=== PATIENT | male | born 1935 | race Caucasian/White ===

== ENCOUNTER 2018-04-25 08:32 | Emergency (ER) | payer MEDICARE, SELFPAY ==
[2018-04-25 08:32] VITALS: BP 123/65; PULSE 79; RESP 18; TEMP 36.7; O2SAT 100; BMI 31.3
--- NOTE | 2018-04-25 08:33 | ED.GENADULT ---
HPI - General Adult General Chief complaint: Altered Mental Status Stated complaint: Mental Health Eval Time Seen by Provider: 04/25/18 08:33 Source: patient and police Mode of arrival: other (Police) Limitations: altered mental status History of Present Illness HPI narrative: Patient arrived this morning by police after they were called because the patient was found along the street. Police state that the patient stated that he was trying to find his ?Turkmen ?who he has been talking to on the ?[employer] ?. Patient has no complaints upon arrival. States he does not know why he is here. Is calm. I was able to contact the patient's daughter whose name is Maribell Quinn. Her phone number is [phone]. It was reported by her that the patient was a resident of the [id number] until ?just recently ?I do not know how long he has been outside of this facility. He has been staying with his daughter Maribell. His daughter states that over the past several days his ?dementia ?has been ?getting worse ?. She states that he was accusing her of ?kidnapping ?him. Apparently he has also been leaving the house in the middle the night. Maribell told me this morning that the patient wanted her to call the police to ?report the kidnapping ?who was apparently them who called the police this morning. Related Data Previous Rx's Medication Instructions Recorded lorazepam [Ativan] 0.5 mg PO Q4HR PRN #20 tab 04/25/18 quetiapine [Seroquel] 25 mg PO BID #60 tab 04/25/18 Allergies Allergy/AdvReac Type Severity Reaction Status Date / Time phenobarbital Allergy Verified 04/25/18 13:34 Review of Systems Review of Systems Patient has no complaints upon arrival Constitutional Denies fever(s) and Denies headache(s) Eyes Denies blurry vision and Denies diplopia ENT Ears, Nose, Mouth, and Throat: Denies headache(s) Cardiovascular Denies chest pain and Denies dyspnea Respiratory Denies dyspnea Gastrointestinal Gastrointestinal: Denies abdominal pain Genitourinary Denies dysuria Musculoskeletal Denies myalgias and Denies arthralgias Integumentary/Breasts Denies rash Neurologic Denies headache(s) PFSH Medical History Dementia (Acute) Social History marital status: unmarried,single lives independently: No caregiver/support person: Yes (Daughter) housing: house Exam Initial Vital Signs Initial Vital Signs: Vital Signs Temperature 98.1 F 04/25/18 08:32 Pulse Rate 79 04/25/18 08:32 Respiratory Rate 18 04/25/18 08:32 Blood Pressure 123/65 04/25/18 08:32 Pulse Oximetry 100 04/25/18 08:32 Const General: cooperative, comfortable, well developed, well groomed and No acute distress Orientation: alert, awake, oriented to person, not oriented to place, not oriented to time and confused HENMT Head: normal to inspection and normocephalic Resp Effort & Inspection: normal respiratory effort Auscultation: clear to auscultation bilaterally Cardio Rate: regular rate Rhythm: regular rhythm GI Inspection: non-distended Palpation: soft Skin Lesions: no lesions Rashes: no rashes Neuro General: alert, awake, gait normal and moves all extremities Speech: speech normal Gait: normal gait Sensory Exam: no sensory deficits noted Extrem General: normal to inspection and capillary refill normal Psych Appearance: grossly normal and well kempt Course Orders Ordered: ED Orders 04/25/18 08:34 Consult to Parts Lister Stat 04/25/18 08:50 CT head/brain wo con Stat 04/25/18 09:17 Acetaminophen Stat Ammonia (NH3) Stat Basic Metabolic Panel Stat Complete Blood Count AUTO DIFF Stat Ethanol (ETOH) Stat 04/25/18 09:43 Urine Drug Screen, Rapid Stat Vital Signs - 8 hr 04/25/18 08:32 04/25/18 12:29 Temperature 98.1 F 98.0 F Pulse Rate 79 63 Respiratory Rate 18 18 Blood Pressure 123/65 Blood Pressure [Left Arm] 127/63 Pulse Oximetry 100 96 Medical Decision Making Lab Data Lab results reviewed: Yes I reviewed the patient's lab results. Result diagrams: 04/25/18 09:17 04/25/18 09:17 Lab Results 04/25/18 04/25/18 04/25/18 Range/Units 09:17 09:17 09:17 WBC 9.7 (4.5-11.0) X10^3/uL RBC 4.74 (4.5-5.9) X10^6/uL Hgb 15.7 (13.5-17.5) g/dL Hct 44.2 (41-53) % MCV 93.4 (80-100) fL MCH 33.2 (26-34) PG MCHC 35.6 (30-36) % RDW 12.9 (11.6-14.8) % Plt Count 220 (150-400) X10^3/uL Neut % (Auto) 85.1 H (50-75) % Lymph % (Auto) 8.3 L (25-40) % Piatt % (Auto) 5.5 (3-14) % Eos % (Auto) 0.7 L (2-4) % Baso % (Auto) 0.4 (0-2) % Neut # (Auto) 8200 H (1076-8833) /uL Sodium 140 (137-145) mmol/L Potassium 4.5 (3.4-5.1) mmol/L Chloride 104 (98-107) mmol/L Carbon Dioxide 23 (22-32) mmol/L BUN 14 (9-20) mg/dL Creatinine 0.90 (0.66-1.25) mg/dL Estimated GFR > 60.0 (>60) mL/min BUN/Creatinine Ratio 15.6 (6-22) Glucose 190 H (80-110) mg/dL Calcium 9.6 (8.4-10.2) mg/dL Ammonia 9.0 (9-30) umol/L Urine Opiates Screen (Negative) Ur Oxycodone Screen (Negative) Urine Methadone Screen (Negative) Acetaminophen < 10 L (10-30) ug/mL Ur Barbiturates Screen (Negative) U Tricyclic Antidepress (Negative) Ur Phencyclidine Scrn (Negative) Ur Amphetamines Screen (Negative) U Methamphetamines Scrn (Negative) Ur MDMA Scrn (Ecstasy) (Negative) U Benzodiazepines Scrn (Negative) Urine Cocaine Screen (Negative) U Marijuana (THC) Screen (Negative) Ethyl Alcohol < 10 mg/dL 04/25/18 Range/Units 09:43 WBC (4.5-11.0) X10^3/uL RBC (4.5-5.9) X10^6/uL Hgb (13.5-17.5) g/dL Hct (41-53) % MCV (80-100) fL MCH (26-34) PG MCHC (30-36) % RDW (11.6-14.8) % Plt Count (150-400) X10^3/uL Neut % (Auto) (50-75) % Lymph % (Auto) (25-40) % Piatt % (Auto) (3-14) % Eos % (Auto) (2-4) % Baso % (Auto) (0-2) % Neut # (Auto) (4609-7707) /uL Sodium (137-145) mmol/L Potassium (3.4-5.1) mmol/L Chloride (98-107) mmol/L Carbon Dioxide (22-32) mmol/L BUN (9-20) mg/dL Creatinine (0.66-1.25) mg/dL Estimated GFR (>60) mL/min BUN/Creatinine Ratio (6-22) Glucose (80-110) mg/dL Calcium (8.4-10.2) mg/dL Ammonia (9-30) umol/L Urine Opiates Screen Negative (Negative) Ur Oxycodone Screen Negative (Negative) Urine Methadone Screen Negative (Negative) Acetaminophen (10-30) ug/mL Ur Barbiturates Screen Negative (Negative) U Tricyclic Antidepress Negative (Negative) Ur Phencyclidine Scrn Negative (Negative) Ur Amphetamines Screen Negative (Negative) U Methamphetamines Scrn Negative (Negative) Ur MDMA Scrn (Ecstasy) Negative (Negative) U Benzodiazepines Scrn Negative (Negative) Urine Cocaine Screen Negative (Negative) U Marijuana (THC) Screen Negative (Negative) Ethyl Alcohol mg/dL Imaging Data CT scan - head: Radiologist's impression: PROCEDURE: CT HEAD/BRAIN WO CON INDICATIONS: Altered mental status TECHNIQUE: Noncontrast 4.5 mm thick angled axial sections acquired from the foramen magnum to the vertex, with coronal and sagittal reformats. For radiation dose reduction, the following was used: automated exposure control, adjustment of mA and/or kV according to patient size. COMPARISON: None. FINDINGS: Image quality: Excellent. CSF spaces: Basal cisterns are patent. No extra-axial fluid collections. The ventricles are symmetric in size and shape. Brain: No intracranial bleeds or masses. There is cerebral volume loss for age, with resultant ventricular and sulcal prominence. There are periventricular and deep white matter chronic small vessel ischemic changes. There is intracranial internal carotid artery atherosclerosis. Skull and face: Calvarium and visualized facial bones appear intact, without suspicious lesions. Sinuses: Visualized sinuses and mastoids are clear. IMPRESSION: Normal for age, source of current altered mental status symptoms is not seen. Dictated by: Behzad Wilcox M.D. on 04/25/2018 at 10:17 Approved by: Behzad Wilcox M.D. on 04/25/2018 at 10:19 [facility] Narrative Medical decision making narrative: Patient is medically cleared. He has no signs of trauma. Was able to talk with his daughter who did come to the emergency department. Social Work was involved. 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 Patient does not require further workup here in the emergency department. He was evaluated by the [facility] staff here in the emergency department. He was discharged to his daughter to take him to this new facility. Discharge Plan Departure Patient Disposition: Home Clinical Impression: Dementia Activity Restrictions/Additional Instructions: I did prescribe a short course of medications but further prescriptions of these medicines do need to be filled by either the medical voucher clerk at [facility] or by his primary doctor. Patient may be transferred to [facility] with medications Prescriptions: New quetiapine [Seroquel] 25 mg tablet 25 mg PO BID Qty: 60 RF: 0 lorazepam [Ativan] 0.5 mg tablet 0.5 mg PO Q4HR PRN (Reason: sedation) Qty: 20 RF: 0
--- NOTE | 2018-04-25 08:46 | PC.NURSE ---
on arrival pt awake, cooperative with care, denies any pain at this time, states, just with cold feet skin warm dry pink, moving all extremities.
--- NOTE | 2018-04-25 08:50 | DI.CT.S_ITS ---
PROCEDURE: CT HEAD/BRAIN WO CON INDICATIONS: Altered mental status TECHNIQUE: Noncontrast 4.5 mm thick angled axial sections acquired from the foramen magnum to the vertex, with coronal and sagittal reformats. For radiation dose reduction, the following was used: automated exposure control, adjustment of mA and/or kV according to patient size. COMPARISON: None. FINDINGS: Image quality: Excellent. CSF spaces: Basal cisterns are patent. No extra-axial fluid collections. The ventricles are symmetric in size and shape. Brain: No intracranial bleeds or masses. There is cerebral volume loss for age, with resultant ventricular and sulcal prominence. There are periventricular and deep white matter chronic small vessel ischemic changes. There is intracranial internal carotid artery atherosclerosis. Skull and face: Calvarium and visualized facial bones appear intact, without suspicious lesions. Sinuses: Visualized sinuses and mastoids are clear. IMPRESSION: Normal for age, source of current altered mental status symptoms is not seen. Dictated by: Behzad Wilcox M.D. on 04/25/2018 at 10:17 Approved by: Behzad Wilcox M.D. on 04/25/2018 at 10:19
[2018-04-25 09:25] LABS: Add Manual Diff / Slide Review NO; Basophils Percent Auto 0.4 % (0-2); Eosinophils Percent Auto 0.7 % (2-4); Hematocrit 44.2 % (41-53); Hemoglobin 15.7 g/dL (13.5-17.5); Lymphocytes Percent Auto 8.3 % (25-40); Mean Corpuscular HGB Conc 35.6 % (30-36); Mean Corpuscular Hemoglobin 33.2 PG (26-34); Mean Corpuscular Volume 93.4 fL (80-100); Monocytes Percent Auto 5.5 % (3-14); Neutrophils Absolute Auto 8200 /uL (1500-7000); Neutrophils Percent Auto 85.1 % (50-75); Platelet Count 220 X10^3/uL (150-400); Red Blood Cell Count 4.74 X10^6/uL (4.5-5.9); Red Cell Distribution Width 12.9 % (11.6-14.8); White Blood Cell Count 9.7 X10^3/uL (4.5-11.0)
--- NOTE | 2018-04-25 09:32 | PC.NURSE ---
Shafter from social work will be down after morning rounds, RN and MD aware.
[2018-04-25 09:37] LABS: Acetaminophen < 10 ug/mL (10-30); BUN Creatinine Ratio 15.6 (6-22); Blood Urea Nitrogen 14 mg/dL (9-20); Calcium 9.6 mg/dL (8.4-10.2); Carbon Dioxide 23 mmol/L (22-32); Chloride 104 mmol/L (98-107); Estimated Glomerular Filt Rate > 60.0 mL/min (>60); Ethanol (ETOH) < 10 mg/dL; Glucose 190 mg/dL (80-110); HEMOLYSIS < 15 (0-50); Potassium 4.5 mmol/L (3.4-5.1); Sodium 140 mmol/L (137-145)
[2018-04-25 09:50] LABS: Urine Amphetamines Negative (Negative); Urine Barbiturates Negative (Negative); Urine Benzodiazepines Negative (Negative); Urine Cocaine Negative (Negative); Urine MDMA Negative (Negative); Urine Methadone Negative (Negative); Urine Methamphetamines Negative (Negative); Urine Morphine/Opi cutoff 2000 Negative (Negative); Urine Oxycodone Negative (Negative); Urine Phencyclidine Negative (Negative); Urine Tetrahydrocannabinol Negative (Negative); Urine Tricyclic Antidepressant Negative (Negative)
--- NOTE | 2018-04-25 10:47 | CM.SWNOTE ---
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 BF Original Note: Addendum entered by MIAH Gilbert 04/25/18 11:05: ADD: Per Dtr Maribell, just spoke to Oxana from [facility] and she will be bedside in the ER to assess the pt for placement today around 1300. Dtr running home to grab some of the patient's belongings and currently they are agreeable with placement for the pt as long as assessment is approved by [facility]. Family plans to still follow up with [facility] on Friday towards possibly getting on the waitlist for placement in the future. KAILEE updated RN and will wait for assessment at 1300 to confirm pt can be placed intermediate at [facility] in [facility]. KAILEE printed off clinicals for Oxana to review during assessment. MIAH Gilbert Original Note: Dementia Care/Placement needs Per ER MD, pt admitted to ER and transported via [employer] due to confusion and wandering the street in the dark after family called police dept. Per ER MD, so far no medical needs identified to admit pt to the hospital and family requesting support with placement. KAILEE met bedside with pt (who was confused and unable to participate in goal directed discussion) and pt's Dtr Maribell ([phone]) and son ajbari and explained role. Dtr and JAIME confirmed that they had moved the pt from [place] to [facility] less than a year ago and recently pt's dementia has gotten worse and [facility] requested pt move from their facility due to being too high level of care for their fdc community. Family at that time decided to try to move the pt into their home here in [place] but recently pt has become increasingly confused and wandering away from home and not sleeping at night and they realize they cannot safely maintain the pt in their home. Family states that they have left messages with [facility] to inquire about intermediate care placement and possible timeline for openings. SW discussed possible options of ankle bracelet from [employer], private pay caregivers in the home for additional support, Respite Stay at Memory Care Facility, and provided list of other memory care facilities in [facility]. Family reviewed the Senior Resource Guidebook KAILEE provided and stated they are agreeable to either Respite Stay or LTC at Memory Care facility, whichever could happen today and state that the pt has financial means to pay and do not feel he would qualify for Medicaid. KAILEE called Hetal at [facility] and she confirms that she remembers meeting the pt and family about 6 months ago and family at that time decided on taking pt home with them. 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 Hetal states that pending how that assessment goes, they could then assess the pt if the other gentleman does not meet the needs for their facility but unknown at this time. KAILEE called Oxana from [facility] and she confirms that their 3 Respite Beds are full at this time but they have one LTC male bed available at [facility] and she could assess the pt today. KAILEE updated the family and provided [facility]'s number and [employer] brochure to review and family calling [facility] currently to determine if they are agreeable to assessment and facility tour for placement today. KAILEE updated . Plan: KAILEE following for possible assessment from [facility] today for possible LTC placement at their Memory Care facility today. MIAH Gilbert
--- NOTE | 2018-04-25 11:11 | PC.NURSE ---
per ashu, staff from [facility],arrival for assessment approximately 1300. family left to get pts personal belongings.
[2018-04-25 12:29] VITALS: BP 127/63; PULSE 63; RESP 18; TEMP 36.7; O2SAT 96
[2018-04-25] MEDS: LORazepam 0.5 MG TABLET PO (13:35)
[2018-04-25] MEDS: QUETIAPINE 25 MG TABLET PO (13:35)
== END 2018-04-25 13:57 | disposition home or self-care (01) ==
PROVIDERS: Emergency Provider Emergency Medicine
DX: F03.90 Unspecified dementia, unspecified severity, without behavioral disturbance, psychotic disturbance, mood disturbance, and anxiety (principal)
CPT/HCPCS: 36415; 70450; 80048; 80305; 80320; 80329; 82140; 85025; 99282; 99284; G0480

== ENCOUNTER → 2019-05-25 07:42 | Outpatient (ROUT) | payer MEDICARE, SELFPAY ==
[2019-05-25 07:44] LABS: RBC Urine None Seen (0-5/HPF)
[2019-05-25 07:46] LABS: Appearance Urine UA CLEAR; Bilirubin Urine UA NEGATIVE (NEGATIVE); Color Urine UA YELLOW; Glucose Urine UA NEGATIVE (Negative); Ketones Urine UA NEGATIVE (NEGATIVE); Leukocyte Esterase Urine UA NEGATIVE (NEGATIVE); Nitrite Urine UA NEGATIVE (Negative); Occult Blood Urine UA NEGATIVE (Negative); Protein Urine UA NEGATIVE (Negative); Urobilinogen Urine UA 0.2 E.U./dL (0.2)
[2019-05-25 08:13] LABS: Bacteria Urine Occasional (0-1); Squamous Epithelial Cell Urine 0-1 /HPF (0-5/HPF); WBC Urine 0-1/HPF (0-5/HPF)
[2019-05-25 08:14] LABS: Culture Indicated Urine Cult Not Indicated; Mucus Urine 1+ (Negative)
== END ==
PROVIDERS: Visit Provider Nurse Practitioner Family
DX: R45.1 Restlessness and agitation (principal)
CPT/HCPCS: 81001

== ENCOUNTER 2019-06-06 12:33 | Emergency (ER) | payer MEDICARE, OTHER, SELFPAY ==
[2019-06-06 12:41] VITALS: BP 124/58; PULSE 75; RESP 12; TEMP 36.8; O2SAT 100; BMI 25.8
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
[2019-06-06 13:24] LABS: Add Manual Diff / Slide Review NO; Basophils Absolute Auto 0 /uL (0-100); Basophils Percent Auto 0.7 % (0-2); Eosinophils Absolute Auto 200 /uL (0-450); Hematocrit 42.6 % (41-53); Lymphocytes Absolute Auto 1200 /uL (1100-4500); Lymphocytes Percent Auto 19.5 % (25-40); Mean Corpuscular HGB Conc 35.3 % (30-36); Mean Corpuscular Hemoglobin 32.4 PG (26-34); Monocytes Absolute Auto 500 /uL (0-900); Monocytes Percent Auto 8.1 % (3-14); Neutrophils Absolute Auto 4100 /uL (1500-7000); Neutrophils Percent Auto 68.7 % (50-75); Platelet Count 192 X10^3/uL (150-400); Red Blood Cell Count 4.63 X10^6/uL (4.5-5.9); Red Cell Distribution Width 13.1 % (11.6-14.8)
[2019-06-06 13:34] LABS: Alanine Aminotransferase 11 IU/L (<50); Albumin 4.2 g/dL (3.5-5.0); Albumin Globulin Ratio 1.3 (1.0-2.8); Alkaline Phosphatase 82 U/L (38-126); Aspartate Aminotransferase 21 IU/L (17-59); BUN Creatinine Ratio 18.9 (6-22); Bilirubin Total 0.3 mg/dL (0.2-1.3); Blood Urea Nitrogen 17 mg/dL (9-20); Calcium 9.1 mg/dL (8.4-10.2); Carbon Dioxide 28 mmol/L (22-32); Chloride 105 mmol/L (98-107); Estimated Glomerular Filt Rate > 60.0 mL/min (>60); Ethanol (ETOH) < 10 mg/dL; Globulin 3.3 g/dL (1.7-4.1); Glucose 120 mg/dL (80-110); HEMOLYSIS < 15 (0-50); Potassium 4.6 mmol/L (3.4-5.1); Sodium 141 mmol/L (137-145); Total Protein 7.5 g/dL (6.3-8.2)
[2019-06-06 14:15] LABS: Thyroid Stimulating Hormone 2.84 uIU/mL (0.47-4.68)
[2019-06-06 15:02] VITALS: BP 127/65; PULSE 62; RESP 18; O2SAT 99
--- NOTE | 2019-06-06 16:09 | DI.CT.S_ITS ---
PROCEDURE: CT HEAD/BRAIN WO CON INDICATIONS: Change in hallucinations over the past few weeks TECHNIQUE: Noncontrast 4.5 mm thick angled axial sections acquired from the foramen magnum to the vertex, with coronal and sagittal reformats. For radiation dose reduction, the following was used: automated exposure control, adjustment of mA and/or kV according to patient size. COMPARISON: [facility], CT, CT HEAD/BRAIN WO CON, 04/25/2018, 8:52. FINDINGS: Image quality: Diagnostic. CSF spaces: Basal cisterns are patent. No extra-axial fluid collections. Ventricles are mild prominent with corresponding parenchymal volume loss. Brain: No midline shift. No intracranial masses or hemorrhage. Suggs-white matter interface is normal. Scattered areas of periventricular low attenuation are seen within the supratentorial brain. Prominent vascular calcifications of the vertebral and internal carotid arteries are present. Skull and face: Calvarium and visualized facial bones are intact, without suspicious lesions. Sinuses: Visualized sinuses and mastoids are clear. IMPRESSION: 1. No acute intracranial hemorrhage. 2. Chronic small vessel ischemic changes and parenchymal volume loss. Dictated by: Jasen Yost M.D. on 06/06/2019 at 15:44 Approved by: Jasen oYst M.D. on 06/06/2019 at 15:46
--- NOTE | 2019-06-06 16:28 | CM.SWNOTE ---
Addendum entered by Oxana Rinaldi R.N. 06/06/19 19:38: Patient was considered Voluntary for psychiatric treatment according to [facility] due to patient having lewy body dementia and unable to make medical or mental health choices and has a DPOA stating his daughter is able to make medical decisions and she would like him to get inpatient psychiatric treatment for medication stabilization. Oxana Rinaldi RN Addendum entered by Oxana Rinaldi R.N. 06/06/19 18:43: TRACY/RN heard back from Agnes at [facility] and since patient has a DPOA and patient has hx of Lewy Body dementia. CM/RN let ED staff know and updated ED tracker. TRACY/RN called [facility] in [place] they will review patients clinicals and will determine if they will accept in the morning with their admission coordinator Ghazala is available her phone number is [phone]. TRACY/RN called [facility] [place] they take 55 yrs or older but do not take dementia patients so are not able to accept. TRACY/ASHELY called [facility] but they no longer take dementia or [facility] patients. TRACY/RN called [facility] they don't currently have a bed but we can try again tomorrow to see if anything becomes available. Oxana Rinaldi RN Addendum entered by Oxana Rinaldi R.N. 06/06/19 18:31: Tracy/ASHELY spoke with Dr. Saunders from [facility] living and she said that she called [facility] in [facility] and was told they have a bed tomorrow for a male [facility] and just needs the clinicals faxed to them at [phone] to review for possible placement. TRACY/RN is waiting to fax clinicals to [facility] until [facility] determines if patient is voluntary or involuntary and dispatch the [facility]. TRACY/RN Faxed A attestation form to [phone] along with clinicals and CM/RN note. ZEHRA called [facility] again at [phone] and left a message for Agnes to get back to me about [facility]. Addendum entered by Oxana Rinaldi R.N. 06/06/19 17:53: TRACY/RN spoke with patients daughter Maribell who does not have a legal Guardianship but is the patients Legal DPOA. She is witting a Affidavit to go to [facility] to review if they need to be called out. Cm/RN called Agnes at [facility] to asks about dispatching the [facility] as previously discussed during earlier phone call. Agnes stated she is now not sure that [facility] is needing to be called out to evaluate patient and she put a referral in to the [facility] to call CM/RN to discuss need for involuntary vs voluntary placement due to patients cognition level and having a DPOA in place. CM/RN will fax over [facility] attestation form signed by provider. Oxana Rinaldi RN. Addendum entered by Oxana Rinaldi R.N. 06/06/19 16:59: TRACY/RN spoke with [facility] at . CM/RN was told that patient would need to have a legal guardian established not just the DPOA who would determine that patient needed mental health care and if their is no legal guardian then [facility] would need to be called to determine if Involuntary placement is needed. CM/RN will talk with patients daughter to determine if legal guardianship exists if it does then CM/RN will continue with placement options if not then CM/RN will talk with ED provider to determine next step. Oxana Rinaldi RN Original Note: Hammer Shop Supervisor note: CM/RN : EMR Reviewed: Patient is a 83 yr old male with a HX of Lewy body dementia. Patient was brought into [facility] from [facility] due to his increased aggressive behaviors, hallucinations and talking to himself. Patients Daughter Maribell Quinn is patients DPOA and she brought in copy for our records. Sheridan at [facility] stated they will not be accepting patient back to their facility because of his behaviors. CM/RN spoke with patients daughter who is working on finding a memory care placement for the patient but is worried that the patient will need mental health stabilization due to hallucinations and hearing voices prior to a memory care placement. CM/RN will call [facility] and determine if patient would be voluntary since patient is not able to make choices but has a DPOA who would like him to get help or involuntary since he is not able to make decisions. CM/RN will call [facility] Crisis to determine status and work on placement after that. Oxana Rinaldi RN Discharge Planning/Care Management ED Mental Health Evaluation Status Start: 06/06/19 12:43 Freq: Status: Active Protocol: Document 06/06/19 14:26 MME (Rec: 06/06/19 14:26 MME [id number]) Mental Health Evaluation Status Mental Health Evaluation Status Pending Date 06/06/19 Approximate Time of Arrival 14:26 [facility] Name [facility] ED Psychiatric Symptoms Assessment Start: 06/06/19 12:43 Freq: Status: Active Protocol: Document 06/06/19 15:17 MME (Rec: 06/06/19 15:19 MME [id number]) Psychiatric Symptoms Assessment Symptoms/Complaint confusion Associated Psychiatric Symptoms Delusions Associated Symptoms Confusion Level of Consciousness Awake,Disoriented,Follows Commands,Restless Patient Orientation Name,Birthday,Place Patient Behavior/Mood Cooperative Ability to Follow Directions Excellent Affect Description Calm Patient Appearance Well Groomed Hallucination Type None Suicidal Ideation None Suicide Plan No Plan Homicidal Ideation None Nausea/Vomiting None ENTRY LEVEL STAFF ACCOUNTANT - Hammer Shop Supervisor Assessment Start: 06/06/19 16:06 Freq: Status: Active Protocol: Document 06/06/19 16:06 HS (Rec: 06/06/19 16:27 HS [id number]) ENTRY LEVEL STAFF ACCOUNTANT/Hammer Shop Supervisor Assessment Start date 06/06/19 Visit Start Time 14:15 End date 06/06/19 Visit End Time 14:40 Total time Care Management spent on 180 patient visit-in minutes Presenting Problem Patient was brought to the ED due to agressive behaviors and hallucinations at [facility]. Precipitating Event(s) Patient has hx Lewy body dementia. patient has been struggling with hallucinations and hearing voices which has increased his aggressive behaviors. Current Behavioral Health Provider(s) Patient does not currently Include Facility, Provider, Ph. # have a behavior health provider. Psychiatric Hospitalizations (date(s)/ not been previously location) hospitalized Support System(s) Patients DPRICK is his daughter Maribell Quinn -[phone] Orientation (Person/Place/Time) Patient was alert during CM/RN meeting but was not oriented to time/Place or person. when asked what the year was patient stated it was [birth year] and he believed he was in [facility] rather than [facility]. Affect Flat and confused Thought Content - Specify/Describe Patient believes that his Obsessions, Delusions, Hallucinations parents are still alive and that he is 29 years old. Cm/RN spoke with admission nurse Sheridan at [facility] and she stated that the Patient believes that men are bank robbers that need to be stopped and that is usually when he becomes aggressive with his behaviors. When talking with CM/RN patient did stated that he say Indians ridding horses outside. Patient was staring at a wall in a room with no window. CM/ RN asked when the patient saw this? Patient stated it is happening now, while pointing at the wall. Thought Processes (Cbiaplo-Wffgkkug-Njgi Disorganized and incoherent Rafvttrw-Eerihhss-Uwumvdikvm- Aexgkzynnaakkr-Zuonyhf-Epoizpeyubsq- Thought Blocking) Speech (Igybva-Mqhv-Mgylcbt-Rapid-Soft- slow Loud-Pressured) Motor (Gfdvng-Ttyiywinx-Mrro-Other) normal Insight (Present-Partially Present- impaired Impaired) Judgement (Intact-Impaired) impaired Impulse Control (Adequate-Impaired) impaired Memory (Dqpvmwnvv-Shylyg-Jdxuaa, Remote and unclear. Patient Impaired-Intact) not able to recall recent or past events with any clarity. Concentration (Intact-Impaired) impaired Attention (Intact-Impaired) impaired- loses focus and starts to ramble Behavior (Appropriate-Inappropriate) Patents behavior is currently appropriate, patient does wander and needs to be redirected frequently Suicidal Ideation (Plan) No Homicidal Ideation (Plan) No Intervention CM/RN is working with patients daughter and FELECIA Quinn to come up with a plan of care for patient. [facility] will not accept patient back to their facility due to increasing behavior issues. CM/RN will contact [facility] to determine if patient would be considered Voluntary due to patients daughter agreeing to [facility] placement or would [facility] need to be called to assess patient for involuntary placement? CM/RN will also get resources for patients daughter about memory care facilities that might take patient like [facility] in [place] or [facility] in [place].
--- NOTE | 2019-06-06 19:54 | CM.SWNOTE ---
Addendum entered by Oxana Manning R.N. 06/06/19 20:00: TRACY/RN faxed CLinicals, and DPOA copy to [facility] in [place] at [phone] for them to review for possible placement. Original Note: career placement services counselor note: CM/RN: TRACY/RN called Oxana at [facility] and she is not able to accept patient currently because they do not have a male bed available but she did suggest calling [facility] at [phone] or [facility] either in [place] at [phone] or [place] at [phone]. TRACY/ RN is working on getting patient placement into [facility] facility and currently waiting for [facility] in [place] to review and determine if they will accept patient tomorrow morning. CM department or ED will follow up with Ghazala from [facility] in the morning 06/07/2019 to determine if they will accept. Ghazala's phone number is [phone]. Oxana Manning RN
--- NOTE | 2019-06-06 20:56 | PC.NURSE ---
gave report to edwige barboza for patient status
[2019-06-06 22:15] LABS: UR Morphine/Opiate cutoff 300 Negative (Negative); Ur Creatinine Normal (Normal); Ur Specific Gravity Normal (Normal); Urine Amphetamines Negative (Negative); Urine Barbiturates Negative (Negative); Urine Benzodiazepines Negative (Negative); Urine Cocaine Negative (Negative); Urine MDMA Negative (Negative); Urine Methadone Negative (Negative); Urine Methamphetamines Negative (Negative); Urine Oxycodone Negative (Negative); Urine Phencyclidine Negative (Negative); Urine Tetrahydrocannabinol Negative (Negative); Urine Tricyclic Antidepressant Negative (Negative); Urine pH Normal (Normal)
--- NOTE | 2019-06-06 23:59 | PC.NURSE ---
jose de jesus Fong arrived at 2300 to be 1:1 patient residential caregiver sitting at doorway.
[2019-06-07 00:56] VITALS: BP 163/77; PULSE 78; RESP 16; TEMP 37.2; O2SAT 95
--- NOTE | 2019-06-07 01:18 | PC.NURSE ---
YOUTH OFFICER note: patient thinks there's a poison gas coming from the floor. Daphne BENAVIDES got the patient a mask. Patient is laying on mattress with mask on.
--- NOTE | 2019-06-07 03:47 | PC.NURSE ---
CRAY FISHING HAND note: patient was waking up. Took patient on a walk around the nurse's station- three laps. Patient is back in bed being watched.
--- NOTE | 2019-06-07 05:42 | PC.NURSE ---
GYROSCOPE REPAIRER note: did a couple of laps around the nurse's station with the patient. Patient is now sleeping in bed.
--- NOTE | 2019-06-07 05:46 | CM.MNRNOTE ---
patient remains calm and sitter is walking patient often around unit.
[2019-06-07 07:58] VITALS: BP 178/78; PULSE 72; RESP 16; TEMP 37.1; O2SAT 94
--- NOTE | 2019-06-07 08:38 | PC.NURSE ---
Pt woke up this morning in a good mood he was asking if breakfast was here (0700) and I informed him that breakfast was in an hour (@0800). He said it was cold and that he has some gas in his stomach then burped, after burping he wanted to go for a walk. I walked with Pt around the ED floor then sat in the recliner chair in room 1 then we walked back to his room. Pt got back into bed and stated that he was hungry (0800) I informed him that breakfast is here. Pt sat on the edge of bed, put in his teeth and started to eat his breakfast. Pt had a couple coughs so I grabbed some ice water while coming wack with ice water Pt had emisis all over the table and his food, the force was enough for him to spit out his top dentures. Pt stated that he made a mess and didn't know what happened. His emisis was clear with coffee like grounds the smell was like dirt. Guiac was taken by nurse and sent to the lab. Pt is still stating that he is cold after applying warm blankets. Pt asked if the heater was broken X5 and told him that engineering is working on it X5. Pt is calmly sleeping with 3 warm blankets.
[2019-06-07 08:46] LABS: Hematocrit 46.1 % (41-53); Hemoglobin 15.8 g/dL (13.5-17.5)
[2019-06-07 09:08] VITALS: BP 145/78; PULSE 72; O2SAT 96
[2019-06-07] MEDS: PANTOPRAZOLE 40 MG VIAL 80 MG IV (09:18)
[2019-06-07 09:19] LABS: Occult Blood Gastric Fluid POSITIVE (NEGATIVE); PH Gastric Fluid 4 pH (1-2)
--- NOTE | 2019-06-07 11:57 | CM.SWNOTE ---
MUSIC EXECUTIVE Note: Received call this AM form Ghazala at [facility] contact is Ghazala # [phone] fax# [phone]. Per Ghazala, they are reviewing all the records from yesterday as well as additional clinical that MUSIC EXECUTIVE faxed this AM. Ghazala anticipates that they will be able to accept but needs to get final approval from provider. Updated Dr. Albarran and ED staff via status board. P: Hopeful that patient will transfer to [facility] for geriatric psychiatry. MIAH Cuellar
[2019-06-07] MEDS: LORazepam 2 MG/ML INJ 0.5 MG IV (13:16)
--- NOTE | 2019-06-07 13:29 | PC.NURSE ---
Pt woke up from nap saying he has some business that he has to take care of, such as finding the bank robbers. Pt got his pants and a coat on and started to look for the bank robbers he asked me here his pistol was and I told him that weapons were not allowed in the hospital he told me ok fine i will just arrest them. Pt started getting agitated when I told him that he CAN NOT look into other patient rooms he told me that he has to find these people and they have gun shot wounds. I tried to redirect him from going into other Pt's rooms. Pt was VERY confused on why he was here but knew he was in the hospital and needed to catch the bank robbers he was talking to an imaginary person asking how many robbers were left, and where they were. Pt kept insisting on going into room 13 were there was another Pt getting treatment. After some time I redirected the Pt back into room and started to fold hand towels pt started to calm but then got agitated once more and tried to leave the room, after some convincing we (the nurse and I) got him to lay in bed and take a nap. Pt if currently sleeping with the HOB elevated and blankets.
--- NOTE | 2019-06-07 14:13 | CM.SWNOTE ---
MIAH continued: Received call from Ghazala [facility] she reports that they can accept this patient tomorrow in AM 06-08-2019. Also spoke with daughter/Maribell and she will be here at 3:00pm to sign consents. Case turned over to Oxana Rinaldi CM/RN at approximately 2:15pm. She will update ED staff of the above and meet with daughter. P: [facility] Geriatric psychiatry placement in AM. MIAH Cuellar
--- NOTE | 2019-06-07 14:36 | CM.SWNOTE ---
Addendum entered by Oxana Rinaldi R.N. 06/07/19 16:16: CM/RN got patients DPRICK Quinn to sign consent forms and faxed them back to [facility] in [place]. CM/RN received a signed release of information for [facility] CM/RN sent records requested. CM/RN asked SARAN Aguirre to scan, [facility] referral form from yesterday, DPOA paperwork and consents from [facility] into patients EMR. Oxana Rinaldi RN Original Note: TRACY/RN social service note: EMR reviewed: CM/RN spoke with Ghazala at [facility] in [place] and they can accept patient tomorrow morning at [address] am. [address] provider [address] Dr Kenrick Loving. Nurse report number is [phone] and patient will be going to bed 412. CM/Rn Updated ED status board. Ghazala with [facility] will be faxing release for DPOA to sign when CM/Rn meets with patients FELECIA Reyna at 3pm today. CM/RN will fax back to [facility] when ready. Patients DPOA would like release of records so records can be sent to [facility] for their memory care unit to review for possible placement once d/C from [facility]. Oxana Rinaldi RN.
[2019-06-07 17:04] VITALS: BP 144/76; PULSE 77; RESP 20; TEMP 37.1; O2SAT 94
[2019-06-07 20:53] VITALS: BP 148/70; PULSE 72; RESP 19; TEMP 37.4; O2SAT 95
[2019-06-08 00:16] VITALS: BP 135/65; PULSE 66; RESP 17; TEMP 36.9; O2SAT 95
[2019-06-08 06:29] VITALS: BP 120/65; PULSE 57; O2SAT 90
[2019-06-08 08:04] VITALS: BP 120/59; PULSE 61; RESP 16; O2SAT 94
--- NOTE | 2019-06-08 08:36 | PC.NURSE ---
pt sleeping, with symmetrical respirations. plan transfer to [facility] [id number]
[2019-06-08 09:05] VITALS: BP 132/63; PULSE 54; RESP 16; TEMP 37.6; O2SAT 95
== END 2019-06-08 08:59 ==
PROVIDERS: Emergency Medicine; Emergency Provider Emergency Medicine
DX: G31.83 Neurocognitive disorder with Lewy bodies (principal); F02.81 Dementia in other diseases classified elsewhere, unspecified severity, with behavioral disturbance
CPT/HCPCS: 36415; 70450; 80053; 80305; 80320; 81003; 82271; 83986; 84443; 85014; 85018; 85025; 96374; 96375; 99285; C9113; J2060